=== PATIENT | female | born 1990 | race Caucasian/White ===

== ENCOUNTER 2019-01-28 08:52 | Inpatient (IN) ==
[2019-01-28 08:12] LABS: White Blood Count 16.1 K/mcL (4.3-11.1)
[2019-01-28 08:13] LABS: Basophils % 0.1 %; Hematocrit 39.3 % (35.3-44.9); Immature Granulocytes % 0.5 % (0-4); Lymphocytes # 0.8 K/mcL (0.6-4.6); Lymphocytes % 4.9 %; Mean Corpuscular HGB Conc 33.1 g/dL (31.6-35.5); Mean Corpuscular Hemoglobin 27.1 pg (28.0-33.3); Mean Corpuscular Volume 81.9 fL (83.0-100.0); Mean Platelet Volume 10.2 fL (9.4-12.4); Monocytes # 0.6 K/mcL (0.0-1.3); Monocytes % 3.6 %; Neutrophils # 14.6 K/mcL (1.6-8.9); Platelet Count 190 K/mcL (140-400); Red Cell Distribution Width 14.4 % (11.5-14.5); Segmented Neutrophils % 90.9 %
[2019-01-28 08:21] LABS: Amphetamine Screen,Urine Negative ng/mL (Cutoff=1000); Barbiturate Screen,Urine Negative ng/mL (Cutoff=200); Benzodiazepines Screen,Urine Negative ng/mL (Cutoff=200); Cannabinoid Screen,Urine Negative ng/mL (Cutoff = 50); Cocaine Screen,Urine Negative ng/mL (Cutoff= 300); Opiate Screen,Urine Negative ng/mL (Cutoff=300); Phencyclidine Screen,Urine Negative ng/mL (Cutoff=25)
[~2019-01-28 08:52] MED LIST: *HR* Nalbuphine 10 MG/ML AMPUL IVP PRN; Famotidine 20 MG/2 ML VIAL IVP PRN; Metoclopramide 10 MG/2 ML VIAL IVP PRN; Naloxone 0.4 MG/ML INJ IVP PRN; Ondansetron 4 MG/2 ML VIAL IVP PRN; Penicillin G Potassium 5,000,000 UNIT in 0.9 % Sodium Chloride Mini Bag 100 ML IVPB ONE; Ringers Solution, Lactated 2,000 ML ONE
[2019-01-28] MEDS ORDERED: Epidural Premix (fent/bupiv) 110 ML EP SCH (09:00)
[2019-01-28] MEDS ORDERED: Penicillin G Potassium 2,500,000 UNIT in 0.9 % Sodium Chloride 100 ML IVPB SCH (12:00)
[2019-01-28] MEDS ORDERED: Oxytocin 20 units/ LR 1000 mL 20 UNIT/1,000 ML BAG IVC ONE (12:54)
[2019-01-28] MEDS ORDERED: GENTAMICIN IVPB ONE (13:40)
[2019-01-28] MEDS ORDERED: SODIUM CHLORIDE 0.9% IVPB ONE (13:40)
[2019-01-28] MEDS ORDERED: Ampicillin 2 GM in 0.9 % Sodium Chloride Mini Bag 100 ML IVPB SCH (13:40)
[2019-01-28] MEDS ORDERED: MetroNIDAZOLE 500 MG/100 ML 500 MG/100 ML BAG IVPB SCH (13:40)
[2019-01-28] MEDS: Ringers Solution, Lactated 1,000 ML IVC SCH ×2 (14:21→16:53)
[2019-01-28] MEDS ORDERED: Acetaminophen 325 MG TABLET PO ONE ×2 (15:28→15:52)
[2019-01-28] MEDS ORDERED: Oxytocin 20 units/ LR 1000 mL 20 UNIT/1,000 ML BAG IVC SCH (17:26)
[2019-01-28] MEDS ORDERED: Acetaminophen 325 MG TABLET PO PRN (17:26)
[2019-01-28] MEDS ORDERED: Measles/Mumps/Rubella Vacc 0.5 ML VIAL SQ PRN (17:26)
[2019-01-28] MEDS: Ibuprofen 600 MG TABLET PO PRN (20:13)
[2019-01-28] MEDS: Ampicillin 2 GM in 0.9 % Sodium Chloride Mini Bag 100 ML IVPB SCH (20:13)
[2019-01-28] MEDS: MetroNIDAZOLE 500 MG/100 ML 500 MG/100 ML BAG IVPB SCH (22:52)
[2019-01-29] MEDS: Ibuprofen 600 MG TABLET PO PRN ×4 (02:18→21:23)
[2019-01-29] MEDS: Ampicillin 2 GM in 0.9 % Sodium Chloride Mini Bag 100 ML IVPB SCH ×2 (02:19→09:15)
[2019-01-29] MEDS ORDERED: Ringers Solution, Lactated 1,000 ML ONE (02:27)
[2019-01-29 05:52] LABS: Basophils % 0.2 %; Eosinophils % 0.2 %; Hematocrit 33.1 % (35.3-44.9); Hemoglobin 10.8 g/dL (11.5-15.4); Immature Granulocytes % 0.4 % (0-4); Lymphocytes # 1.4 K/mcL (0.6-4.6); Lymphocytes % 9.8 %; Mean Corpuscular HGB Conc 32.6 g/dL (31.6-35.5); Mean Corpuscular Hemoglobin 26.5 pg (28.0-33.3); Mean Corpuscular Volume 81.1 fL (83.0-100.0); Mean Platelet Volume 10.5 fL (9.4-12.4); Monocytes # 0.9 K/mcL (0.0-1.3); Monocytes % 6.3 %; Neutrophils # 11.7 K/mcL (1.6-8.9); Platelet Count 163 K/mcL (140-400); Red Blood Count 4.08 M/mcL (3.82-4.97); Red Cell Distribution Width 14.7 % (11.5-14.5); Segmented Neutrophils % 83.1 %; White Blood Count 14.1 K/mcL (4.3-11.1)
[2019-01-29] MEDS: MetroNIDAZOLE 500 MG/100 ML 500 MG/100 ML BAG IVPB SCH ×2 (06:49→15:14)
[2019-01-29] MEDS: Prenatal Vit/FA 1 EACH TABLET PO SCH (09:14)
[2019-01-30] MEDS: Ibuprofen 600 MG TABLET PO PRN ×2 (05:04→11:16)
[2019-01-30 09:40] VITALS: BP 103/66
[2019-01-30] MEDS: Prenatal Vit/FA 1 EACH TABLET PO SCH (11:16)
== END 2019-01-30 12:55 | disposition home or self-care (01) | DRG 560 ==
LOC: 1NENULAB → 1NENUOBS 16:54
PROVIDERS: ADMIT Registered Nurse; ATTEND Registered Nurse